=== PATIENT | female | born 1955 | race Caucasian/White ===

== ENCOUNTER 2020-01-03 07:41 | Outpatient (CLI) | payer OTHER, SELFPAY ==
--- NOTE | ~2020-01-03 | MM_ITS ---
EXAMINATION: MM screening [place] BI w homero HISTORY: Screening mammogram TECHNIQUE: Craniocaudal and mediolateral oblique 3-D tomosynthesis images were obtained and synthetic 2-D images were generated. CAD analysis was submitted and interpreted. COMPARISON: 10/10/2018, 10/05/2017, 09/08/2016 BREAST PARENCHYMAL COMPOSITION: There are scattered areas of fibroglandular density. FINDINGS: There is no evidence of suspicious mass, calcification, or architectural distortion to sugg est malignancy in either breast. There has been no suspicious interval change. IMPRESSION: 1. No mammographic evidence of malignancy. 2. Recommend routine screening mammography in one year. BI-RADS Category 1: Negative Reviewed, dictated and finalized at location A.
--- NOTE | ~2020-01-03 | DEXA_ITS ---
Bone Density Report Name: Vivian Rivera Age: 64 Sex: Female Ethnicity: White Date of : 1955 Indication: postmenopausal; height loss; Referring Provider: JACKY, CECILIO Study: Bone densitometry was performed. Exam Date: January 03, 2020 Accession number: [id number] Bone Density: Region BMD T-score Z-score Classification AP Spine (L1-L4) 0.889 -1.4 0.1 Osteopenia Femoral Neck (Left) 0.774 -0.7 0.7 Normal Total Hip (Left) 0.907 -0.3 0.8 Normal Total Hip Bilateral Avg 0.913 -0.3 0.8 Normal Femoral Neck (Right) 0.817 -0.3 1.1 Normal Total Hip (Right) 0.917 -0.2 0.9 Normal World Health Organization criteria for BMD impression classify patients as: Normal (T-score at or above -1.0), Osteopenia (T-score between -1.0 and -2.5), or Osteoporosis (T-score at or below -2.5). 10-year Fracture Risk(1): Major Osteoporotic Fracture 7.0% Hip Fracture 0.3% Reported Risk Factors: [place] (), Neck BMD=0.774, BMI=29.8 (1) FRAX(R) Version 3.08. Fracture probability calculated for an untreated patient. Fracture probability may be lower if the patient has received treatment. Clinical Information Provided by Patient: Has used the following medications: Vitamin D Patient maximum height was 68.5 Menopause Age: 54 Drinks caffeinated beverages Onset of menses at age 17 Number of children 1 Impression: The patient has low bone mass, based on the Total Spine T-score. The patient has an estimated ten-year risk of hip fracture of 0.3% and an estimated ten-year risk of major fracture of 7%, based on the WHO FRAX algorithm. Discussion: BONE DENSITY IS LOW AT ONE OR MORE SKELETAL SITES. This patient's lowest T-score is low at one or more skeletal sites. It meets the World Health Organization's (WHO) criteria for ?low bone mass? (T-score between -1.0 and -2.5). The patient's 10-year risk of fracture as calculated by FRAX is less than the threshold where pharmacological therapy is recommended by the National Osteoporosis Foundation (NOF). However, all treatment decisions require clinical judgment and consideration of individual patient factors, including patient preferences, comorbidities, previous drug use, risk factors not captured in the FRAX model (e.g., frailty, falls, vitamin D deficiency, increased bone turnover, interval significant decline in bone density) and possible under or overestimation of fracture risk by FRAX. The patient should follow a healthful lifestyle (good nutrition with adequate calcium and vitamin D, and appropriate weight-bearing exercise). Follow-Up: Consider repeating this study in 2 to 3 years to reassess this patient's status, or sooner if there is some new clinical indication. Reported by: [facility] on 01/03/2020 8:08:00 AM. Revie
== END 2020-01-03 07:42 | disposition home or self-care (01) ==
LOC: ANHIMG 07:45
PROVIDERS: PCP Internal Medicine; Visit Provider Nurse Practitioner
DX: Z12.31 Encounter for screening mammogram for malignant neoplasm of breast (principal); Z78.0 Asymptomatic menopausal state; M85.88 Other specified disorders of bone density and structure, other site
CPT/HCPCS: 77063; 77067; 77080

== ENCOUNTER 2020-11-12 08:00 | Outpatient (CLI) | payer BC, SELFPAY ==
--- NOTE | 2020-11-12 12:41 | P.PCNPFT_ITS ---
PFT Procedure Performed PFT Procedure Performed Spirometry with Pre/Post Bronchodilator Plethysmography (Lung Vol) Diffusing Cap (DLCO) PFT Interpretation This is a pulmonary function test with pre and post-bronchodilator spirometry, plethysmography and diffusing capacity. The test was performed and results interpreted in accordance with the 2019 and 2005 ATS/ERS Task Force guidelines respectively using the Global Lung Function Initiative-2012 reference equations. Patient demonstrated good effort and cooperation. Reproducibility criteria were met. The quality of the pre bronchodilator spirometry maneuver was Grade A and post bronchodilator spirometry maneuver was Grade A. Findings: Spirometry: The contour the inspiratory and expiratory flow tracing are normal. The pre bronchodilator FEV1 is 3.35 L, 115% predicted. The pre bronchodilator FEV1 is 2.56 L, 112% predicted. The FEV1: FVC ratio 76%. The po st bronchodilator FVC is 3.29 L, representing a 2% decrease. The post bronchodilator FEV1 is 2.62 L, representing a 2% increase. Plethysmography: The total lung capacity is 5.38, 111% predicted. The functional residual capacity is 2.02 L, 66% predicted. The residual volume is 1.89 L, 93% predicted. Diffusing capacity: The absolute diffusion capacity is 20.0, 89% predicted. The diffusing capacity corrected for alveolar volume is 4.33, 102% predicted. Impression: The spirometry is normal without evidence of an obstructive abnormality. There is no significant improvement after inhaling a single dose of albuterol. The lung volumes are normal. The diffusing capacity is normal. There are no prior studies for comparison
== END 2020-11-12 08:01 | disposition home or self-care (01) ==
PROVIDERS: PCP Internal Medicine; Visit Provider Allergy & Immunology
DX: J45.40 Moderate persistent asthma, uncomplicated (principal)
CPT/HCPCS: 94060; 94726; 94729

== ENCOUNTER 2021-01-04 08:41 | Outpatient (CLI) | payer BC, SELFPAY ==
--- NOTE | ~2021-01-04 | MM_ITS ---
EXAMINATION: MM screening [facility] BI w homero HISTORY: Screening mammogram TECHNIQUE: Craniocaudal and mediolateral oblique 3-D tomosynthesis images were obtained and synthetic 2-D images were generated. CAD analysis was submitted and interpreted. COMPARISON: 01/03/2020, 10/10/2018, 10/05/2017 bilateral digital screening mammogram examinations BREAST PARENCHYMAL COMPOSITION: There are scattered areas of fibroglandular density. FINDINGS: There is no evidence of suspicious mass, calcification, or architectural distortion to sugg est malignancy in either breast. There has been no suspicious interval change. IMPRESSION: 1. No mammographic evidence of malignancy. 2. Recommend routine screening mammography in one year. BI-RADS Category 1: Negative Reviewed, dictated and finalized at location A.
== END 2021-01-04 08:42 | disposition home or self-care (01) ==
LOC: ANHIMG 08:44
PROVIDERS: PCP Internal Medicine; Visit Provider Nurse Practitioner
DX: Z12.31 Encounter for screening mammogram for malignant neoplasm of breast (principal)
CPT/HCPCS: 77063; 77067

== ENCOUNTER → 2022-01-06 09:50 | Outpatient (CLI) | payer OTHER, SELFPAY ==
--- NOTE | ~2022-01-06 | MM_ITS ---
EXAMINATION: MM screening [facility] BI w homero HISTORY: Screening mammogram TECHNIQUE: Craniocaudal and mediolateral oblique 3-D tomosynthesis images were obtained and synthetic 2-D images were generated. CAD analysis was submitted and interpreted. COMPARISON: 01/04/2021, 01/03/2020, 10/10/2018, 10/05/2017, 09/08/2016 bilateral screening mammogram [facility] bilateral screening mammogram examinations BREAST PARENCHYMAL COMPOSITION: There are scattered areas of fibroglandular density. FINDINGS: Stable mild fibroglandular asymmetry. There is no evidence of suspicious mass, calcificatio n, or architectural distortion to suggest malignancy in either breast. There has been no suspicious i nterval change. IMPRESSION: 1. No mammographic evidence of malignancy. 2. Recommend routine screening mammography in one year. BI-RADS Category 2: Benign finding(s). Reviewed, dictated and finalized at location A.
--- NOTE | ~2022-01-06 | DEXA_ITS ---
Bone Density Report Name: JOE MARTINEZ Age: 66 Sex: Female Ethnicity: White Date of : 1955 Indication: osteopenia; height loss; asthma or emphysema; postmenopausal Referring Provider: JACKY, CECILIO Study: Bone densitometry was performed. Exam Date: January 06, 2022 Accession number: [id number] Bone Density: Region BMD T-score Z-score Classification AP Spine (L1-L4) 0.869 -1.6 0.1 Osteopenia Femoral Neck (Left) 0.800 -0.4 1.0 Normal Total Hip (Left) 0.940 0.0 1.2 Normal Femoral Neck (Right) 0.849 0.0 1.5 Normal Total Hip (Right) 0.947 0.0 1.2 Normal Total Hip Mean 0.944 0.0 1.2 Normal World Health Organization criteria for BMD impression classify patients as: Normal (T-score at or above -1.0), Osteopenia (T-score between -1.0 and -2.5), or Osteoporosis (T-score at or below -2.5). 10-year Fracture Risk(1): Major Osteoporotic Fracture 7.0% Hip Fracture 0.3% Reported Risk Factors: [place] (), Neck BMD=0.800, BMI=30.1 (1) FRAX(R) Version 3.08. Fracture probability calculated for an untreated patient. Fracture probability may be lower if the patient has received treatment. Previous Exams: Region Exam Age BMD T-score BMD Change BMD Change Date g/cm2 vs Baseline vs Previous AP Spine(L1-L4) 01/06/2022 66 0.869 -1.6 -0.104* -0.021 10/05/2017 62 0.891 -1.4 -0.083* 0.004 09/02/2015 59 0.887 -1.5 -0.087* 0.019 07/18/2013 57 0.868 -1.6 -0.106* -0.106* 07/15/2009 53 0.974 -0.7 Total Hip(Left) 01/06/2022 66 0.940 0.0 -0.048* -0.009 10/05/2017 62 0.949 0.1 -0.039* 0.014 09/02/2015 59 0.935 -0.1 -0.052* -0.004 07/18/2013 57 0.940 0.0 -0.048* -0.048* 07/15/2009 53 0.988 0.4 Total Hip(Right) 01/06/2022 66 0.947 0.0 -0.036* 0.002 10/05/2017 62 0.945 0.0 -0.038* 0.027 09/02/2015 59 0.919 -0.2 -0.065* -0.016 07/18/2013 57 0.934 -0.1 -0.049* -0.049* 07/15/2009 53 0.983 0.3 *Denotes significance at 95% confidence level, LSC for AP Spine = 0.022 g/cm2, LSC for Total Hip = 0.027 g/cm2 Clinical Information Provided by Patient: Has used the following medications: Vitamin D, Calcium, MTV Has the following medical conditions: Asthma or Emphysema Patient maximum height was 68.5 Menopause Age: 55 Drinks caffeinated
== END ==
PROVIDERS: PCP Internal Medicine; Visit Provider Nurse Practitioner
DX: Z12.31 Encounter for screening mammogram for malignant neoplasm of breast (principal); Z78.0 Asymptomatic menopausal state; M85.88 Other specified disorders of bone density and structure, other site
CPT/HCPCS: 77063; 77067; 77080

== ENCOUNTER → 2023-03-15 12:50 | Outpatient (CLI) | payer MEDICARE, SELFPAY ==
--- NOTE | ~2023-03-15 | MM_ITS ---
EXAMINATION: MM screening [facility] BI w homero HISTORY: Screening mammogram TECHNIQUE: Craniocaudal and mediolateral oblique 3-D tomosynthesis images were obtained and synthetic 2-D images were generated. CAD analysis was submitted and interpreted. COMPARISON: 01/06/2022, 01/04/2021, 01/03/2020 BREAST PARENCHYMAL COMPOSITION: There are scattered areas of fibroglandular density. FINDINGS: No suspicious mass, calcification, or architectural distortion are identified in either rahul ast to suggest malignancy. There has been no suspicious interval change. IMPRESSION: 1. No mammographic evidence of malignancy. 2. Recommend routine screening mammography in one year. BI-RADS Category 1: Negative Reviewed, dictated and finalized at location A.
== END ==
PROVIDERS: PCP Nurse Practitioner; Visit Provider Nurse Practitioner
DX: Z12.31 Encounter for screening mammogram for malignant neoplasm of breast (principal)
CPT/HCPCS: 77063; 77067

== ENCOUNTER 2023-12-14 07:00 | Outpatient (NON) | payer MEDICARE, SELFPAY | END 2023-12-14 07:01 | disposition home or self-care (01) | PROVIDERS: PCP Internal Medicine; Visit Provider Internal Medicine Gastroenterology | DX: D12.2 Benign neoplasm of ascending colon (principal); Z86.010 Personal history of colon polyps | CPT/HCPCS: 88305 ==

== ENCOUNTER 2023-12-14 08:42 | Day surgery (SDC) | payer MEDICARE, SELFPAY ==
[2023-11-27 15:06] VITALS: BMI 30.4
[2023-11-28 13:26] VITALS: BMI 30.3
--- NOTE | 2023-12-14 10:01 | WPDANESEPPF ---
Anes - Initial Pre Proc Eval Procedure: Operation Date: 12/14/23 11:00 Proposed Procedures p Esophagogastroduodenoscopy - Osmar Cardoza MD s Diagnostic Colonoscopy - Osmar Cardoza MD Date/Time: 12/14/23 10:01 Surgeon: Osmar Cardoza MD Pre Op Diagnosis: Gerd wo Esophagitis, Personal HX Colon Polyps Patient Data Age: 68 Gender: F Height: 1.7 m Weight: 87.8 kg Allergies Allergy/AdvReac Type Severity Reaction Status Date / Time oxycodone AdvReac Severe Gastrointestinal Verified 12/14/23 10:15 Upset Home Medications Medication Instructions Recorded Confirmed Type atorvastatin 20 mg tablet 20 mg PO DAILY 10/20/20 12/14/23 History ergocalciferol (vitamin D2) 1,250 1,250 mcg PO WEEKLY 10/20/20 12/14/23 History mcg (50,000 unit) capsule (Vitamin D2) estradiol 10 mcg vaginal insert 10 mcg vaginal 2XW 10/20/20 12/14/23 History fluticasone propionate 50 1 spray intranasal DAILY 10/20/20 12/14/23 History mcg/actuation nasal spray,suspension (Flonase Allergy Relief) montelukast 10 mg tablet 10 mg PO DAILY 10/20/20 12/14/23 History trazodone 50 mg tablet 50 mg PO QHS PRN Insomnia 10/20/20 12/14/23 History Saccharomyces boulardii 250 mg 250 mg PO BID 11/24/23 12/14/23 History capsule (Florastor) albuterol sulfate 90 mcg/actuation 1 inh inhalation Q4H PRN Shortness 11/24/23 12/14/23 History aerosol inhaler (Ventolin HFA) Of Breath calcium 650 mg-vitamin D3 12.5 1 tablet PO DAILY 11/24/23 12/14/23 History mcg-vitamin K 40 mcg chewable tablet (Viactiv) cetirizine 5 mg tablet 10 mg PO DAILY PRN Allergy Symptoms 11/24/23 12/14/23 History dicyclomine 10 mg capsule 10 mg PO QID PRN abdominal pain 11/24/23 12/14/23 Rx #120 caps fluticasone fur. 100 mcg-umeclid 1 inh inhalation DAILY 11/24/23 12/14/23 History 62.5 mcg-vilant 25 mcg inhalat.powder (Trelegy Ellipta) multivitamin 1 tablet PO DAILY 11/24/23 12/14/23 History rifaximin 550 mg tablet (Xifaxan) 550 mg PO TID 14 days #42 tabs 11/24/23 12/14/23 Rx omeprazole 20 mg capsule,delayed 20 mg PO DAILY 11/28/23 12/14/23 History release simethicone 80 mg chewable tablet 80 mg PO DAILY PRN gas 11/28/23 12/14/23 History (Gas Relief 80 (simethicone)) sodium,potassium,mag sulfates 17.5 See Rx Instructions PO .COMPLEX 12/12/23 Rx gram-3.13 gram-1.6 gram oral soln #354 mL (Suprep Bowel Prep Kit) Patient hx anesthesia problems: none Family hx anesthesia problems: none Results Review: All pre-operative results and documents have been reviewed as part of the pre-operative evaluation. [facility] Past Medical History Medical History (Updated 12/14/23 @ 10:01 by Daniel Jones DO) Asthma Diverticulosis GERD (gastroesophageal reflux disease) Surgical History Surgical History (Updated 12/14/23 @ 10:01 by Daniel Jones DO) History of appendectomy Social History Social History Smoking status: Never smoker Alcohol intake: current Drinks per week: 1 Substance use: never Substance use type: does not use Living arrangements: with family Spiritual care concerns: No Anes - Eval Final PreProcedure Day of Procedure 12/14/23 10:01 Patient weight: obese Heart: regular rate and rhythm Lungs: clear to auscultation Airway: Mallampati scale class II Neurological: alert and oriented Last oral intake: >/= 8 hours ASA classification: II Emergent: no Anesthetic plan: proceed Anesthesia type and monitoring: general GIVS and standard monitoring Results Review: All pre-operative results and documents have been reviewed as part of the pre-operative evaluation. Informed Consent: The patient's anesthetic plan and its attendant risks and benefits were discussed with the patient/family/POA. Questions were solicited and answers provided to the satisfaction of the patient/family/POA.
[2023-12-14 10:24] VITALS: BP 159/89; PULSE 74; RESP 20; TEMP 37.3; O2SAT 100; BMI 29.4
[2023-12-14] MEDS: LACTATED RINGERS 1,000 ML 150 ML IV CONT (10:40)
--- NOTE | 2023-12-14 10:51 | WPDHPUPDATE1 ---
History and Physical Update Update Date/Time: 12/14/23 10:51 History and Physical has been reviewed, including an updated exam of the patient. There are NO changes in the patient's condition. Risks, benefits, and alternatives have been discussed and questions answered. Patient agrees to proceed with procedure.
[2023-12-14 11:35] VITALS: BP 138/83; PULSE 75; RESP 16; O2SAT 100
[2023-12-14 11:45] VITALS: BP 140/75; PULSE 67; RESP 16; O2SAT 99
[2023-12-14 11:55] VITALS: BP 126/76; PULSE 70; RESP 20; O2SAT 100
--- NOTE | 2023-12-14 12:17 | WPDANESPN ---
Anes - Prog Note Post-Op Date/Time: 12/14/23 12:17 Cardiovascular status: normal Respiratory status: normal Airway patency: baseline Mental status: baseline Post-Op hydration status: normal Vital Signs: Last Vital Signs Temp 37.3 C 12/14/23 10:24 Pulse 75 12/14/23 11:35 Resp 16 12/14/23 11:35 BP 138/83 12/14/23 11:35 Pulse Ox 100 12/14/23 11:35 O2 Del Method Room Air 12/14/23 11:35 Pain Score (VAS): 0 I/O: Intake & Output 12/13/23 12/14/23 12/14/23 23:59 07:59 15:59 Intake Total 800 Balance 800 Post-procedural complaints: none Patient Feedback: Patient satisfied with anesthetic care. Other Findings: Patient vital signs back to baseline. Patient denies nausea and vomiting. Patient's pain under control. Patient OK for discharge.
== END 2023-12-14 12:14 | disposition home or self-care (01) ==
PROVIDERS: PCP Internal Medicine; Visit Provider Internal Medicine Gastroenterology
PROC: 0DJ08ZZ Inspection of Upper Intestinal Tract, Via Natural or Artificial Opening Endoscopic (ICD-10-PCS; CPT 43235; principal; 2023-12-14 11:00)
PROC: 0DJD8ZZ Inspection of Lower Intestinal Tract, Via Natural or Artificial Opening Endoscopic (ICD-10-PCS; CPT 45378; 2023-12-14 11:00)
DX: Z86.010 Personal history of colon polyps (principal); D12.2 Benign neoplasm of ascending colon; K57.30 Diverticulosis of large intestine without perforation or abscess without bleeding; K64.8 Other hemorrhoids; K21.9 Gastro-esophageal reflux disease without esophagitis
CPT/HCPCS: 45385; 43239

== ENCOUNTER 2024-03-19 10:35 | Outpatient (CLI) | payer MEDICARE, SELFPAY ==
--- NOTE | ~2024-03-19 | MM_ITS ---
EXAMINATION: MM screening [facility] BI w homero HISTORY: Screening TECHNIQUE: Craniocaudal and mediolateral oblique 3-D tomosynthesis images were obtained and synthetic 2-D images were generated. CAD analysis was submitted and interpreted. COMPARISON: Comparison to multiple prior studies sequentially, with oldest reviewed study dated 10/10. BREAST PARENCHYMAL COMPOSITION: Not dense: There are scattered areas of fibroglandular density. FINDINGS: There is no evidence of suspicious mass, calcification, or architectural distortion to sugg est malignancy in either breast. There has been no suspicious interval change. IMPRESSION: 1. No mammographic evidence of malignancy. 2. Recommend routine screening mammography in one year. BI-RADS Category 1: Negative Reviewed, dictated and finalized at location B.
== END 2024-03-19 10:36 | disposition home or self-care (01) ==
LOC: MICIMG 10:36
PROVIDERS: PCP Nurse Practitioner; Visit Provider Nurse Practitioner
DX: Z12.31 Encounter for screening mammogram for malignant neoplasm of breast (principal)
CPT/HCPCS: 77063; 77067

== ENCOUNTER 2024-03-21 09:52 | Outpatient (CLI) | payer MEDICARE, SELFPAY ==
--- NOTE | ~2024-03-21 | DEXA_ITS ---
Bone Density Report Name: JOE MARTINEZ Age: 68 Sex: Female Ethnicity: White Date of : 1955 Indication: osteopenia; height loss; Referring Provider: JACKY, CECILIO Study: Bone densitometry was performed. Exam Date: March 21, 2024 Accession number: [id number] Bone Density: Region BMD T-score Z-score Classification AP Spine(L1-L4) 0.890 -1.4 0.4 Osteopenia Femoral Neck (Left) 0.795 -0.5 1.1 Normal Total Hip (Left) 1.009 0.6 1.9 Normal Femoral Neck (Right) 0.900 0.5 2.1 Normal Total Hip (Right) 0.952 0.1 1.4 Normal Total Hip Mean 0.981 0.4 1.7 Normal World Health Organization criteria for BMD impression classify patients as: Normal (T-score at or above -1.0), Osteopenia (T-score between -1.0 and -2.5), or Osteoporosis (T-score at or below -2.5). 10-year Fracture Risk(1): Major Osteoporotic Fracture 7.2% Hip Fracture 0.4% Reported Risk Factors: [place] (), Neck BMD=0.795, BMI=30.7 (1) FRAX(R) Version 3.08. Fracture probability calculated for an untreated patient. Fracture probability may be lower if the patient has received treatment. Previous Exams: Region Exam Age BMD T-score BMD Change BMD Change Date g/cm2 vs Baseline vs Previous AP Spine (L1-L4) 03/21/2024 68 0.890 -1.4 0.001 (0.1%) 0.001 (0.1%) 01/03/2020 64 0.889 -1.4 Total Hip(Left) 03/21/2024 68 1.009 0.6 0.102 (11.3%)* 0.102 (11.3%)* 01/03/2020 64 0.907 -0.3 Total Hip(Right) 03/21/2024 68 0.952 0.1 0.035 (3.8%)* 0.035 (3.8%)* 01/03/2020 64 0.917 -0.2 *Denotes significance at 95% confidence level, LSC for AP Spine = 0.022 g/cm2, LSC for Total Hip = 0.027 g/cm2 Clinical Information Provided by Patient: Has used the following medications: Vitamin D, Calcium Patient maximum height was 68.5 Menopause Age: 54 No regular weight bearing exercise Onset of menses at age 17 Number of children 1 Impression: The patient has low bone mass, based on the Total Spine T-score. The patient has an estimated ten-year risk of hip fracture of 0.4% and an estimated ten-year risk of major fracture of 7.2%, based on the WHO FRAX algorithm. No significant bone loss was observed. Discussion: BONE DENSITY IS LOW AT ONE OR MORE SKELETAL SITES. This patient's lowest T-score is low at one or more skeletal sites. It meets the World Health Organization's (WHO) criteria for ?low bone mass? (T-score between -1.0 and -2.5).
== END 2024-03-21 09:53 | disposition home or self-care (01) ==
PROVIDERS: PCP Nurse Practitioner; Visit Provider Nurse Practitioner
DX: M85.88 Other specified disorders of bone density and structure, other site (principal)
CPT/HCPCS: 77080

== ENCOUNTER 2025-03-28 10:51 | Outpatient (CLI) | payer MEDICARE, SELFPAY ==
--- NOTE | ~2025-03-28 | MM_ITS ---
EXAMINATION: MM screening [facility] BI w homero HISTORY: Screening TECHNIQUE: Craniocaudal and mediolateral oblique 3-D tomosynthesis images were obtained and synthetic 2-D images were generated. CAD analysis was submitted and interpreted. COMPARISON: Comparison to multiple prior studies sequentially, with oldest reviewed study dated , 01/03/2020 BREAST PARENCHYMAL COMPOSITION: There are scattered areas of fibroglandular density. FINDINGS: There is no evidence of suspicious mass, calcification, or architectural distortion to suggest malignancy in either breast. IMPRESSION: 1. No mammographic evidence of malignancy. 2. Recommend routine screening mammography in one year. BI-RADS Category 1: Negative Reviewed, dictated and finalized at location B.
== END 2025-03-28 10:52 | disposition home or self-care (01) ==
LOC: MICIMG 10:52
PROVIDERS: PCP Nurse Practitioner; Visit Provider Nurse Practitioner
DX: Z12.31 Encounter for screening mammogram for malignant neoplasm of breast (principal)
CPT/HCPCS: 77063; 77067